=== PATIENT | female | born 1980 | race Caucasian/White ===

== ENCOUNTER 2017-04-14 14:48 | Emergency (ER) | payer OTHER ==
--- NOTE | 2017-04-14 15:31 | ER Document Report ---
ED Medical Screen (RME) - General Chief Complaint: Chest Pain > 30 Stated Complaint: CHEST PAIN, BACK PAIN Time Seen by Provider: 04/14/17 15:28 Notes: Patient is having pains in her chest and left upper back since last night. She says the chest pain is no longer present at this time, but she still feels "tight" in the left upper back. She has thought it might be a panic attack. She has had symptoms in the past similar to these. She has had some shortness of breath, but no other symptoms or complaints. Patient is in the process of smoking during this week. She has had one cigarette today. No recent cough or cold or chest congestion. No fevers. No history of any heart disease. TRAVEL OUTSIDE OF THE [place] IN LAST 30 DAYS: No - Related Data Allergies/Adverse Reactions: codeine Allergy (Verified 04/14/17 14:58) Past Medical History Renal/ Medical History: Denies: Hx Peritoneal Dialysis Physical Exam - Vital signs Vitals: Temp Pulse Resp BP Pulse Ox 97.8 F 79 16 149/85 H 99 04/14/17 14:53 04/14/17 14:53 04/14/17 14:53 04/14/17 14:53 04/14/17 14:53 Course - Vital Signs Vital signs: Temp Pulse Resp BP Pulse Ox 97.8 F 79 16 149/85 H 99 04/14/17 14:53 04/14/17 14:53 04/14/17 14:53 04/14/17 14:53 04/14/17 14:53
[2017-04-14 16:18] LABS: ABSOLUTE BASOPHILS # (AUTO) 0.1 10^3/uL (0.0-0.2); ABSOLUTE EOSINOPHILS # (AUTO) 0.6 10^3/uL (0.0-0.6); ABSOLUTE LYMPHOCYTES (AUTO) 2.5 10^3/uL (0.5-4.7); ABSOLUTE MONOCYTES (AUTO) 0.6 10^3/uL (0.1-1.4); ABSOLUTE NEUT (AUTO) 5.2 10^3/uL (1.7-8.2); BASOPHILS % (AUTO) 0.8 % (0-2); EOSINOPHILS % (AUTO) 6.1 % (0-6); HEMATOCRIT 40.7 % (36.0-47.0); HEMOGLOBIN 13.7 g/dL (12.0-15.5); HGB HCT DIFFERENCE 0.4; MEAN CORPUSCULAR HEMOGLOBIN 27.5 pg (27.0-33.4); MEAN CORPUSCULAR HGB CONC 33.6 g/dL (32.0-36.0); MEAN CORPUSCULAR VOLUME 82 fl (80-97); RED BLOOD COUNT 4.96 10^6/uL (3.72-5.28); RED CELL DISTRIBUTION WIDTH 16.1 % (11.5-14.0); SEGMENTED NEUTROPHILS % (AUTO) 58.1 % (42-78)
[2017-04-14 16:30] LABS: ALANINE AMINOTRANSFERASE 36 U/L (9-52); ALBUMIN 4.1 g/dL (3.5-5.0); ALKALINE PHOSPHATASE 92 U/L (38-126); ANION GAP 12 (5-19); ASPARTATE AMINO TRANSFERASE 17 U/L (14-36); BILIRUBIN,DIRECT 0.3 mg/dL (0.0-0.4); BILIRUBIN,TOTAL 0.3 mg/dL (0.2-1.3); BLOOD UREA NITROGEN 10 mg/dL (7-20); CALCIUM 9.2 mg/dL (8.4-10.2); CARBON DIOXIDE 23 mmol/L (22-30); CHLORIDE 103 mmol/L (98-107); GLUCOSE 92 mg/dL (75-110); POTASSIUM 4.2 mmol/L (3.6-5.0); SODIUM 138.2 mmol/L (137-145); TOTAL PROTEIN 6.8 g/dL (6.3-8.2)
[2017-04-14 16:41] LABS: CREATINE KINASE MB 0.27 ng/mL (<4.55)
--- NOTE | 2017-04-14 16:41 | RADIOLOGY REPORT (SQ) ---
EXAM DESCRIPTION: CHEST PA/LAT COMPLETED DATE/TIME: 04/14/2017 4:33 pm REASON FOR STUDY: Chest pain COMPARISON: None. EXAM PARAMETERS: NUMBER OF VIEWS: two views TECHNIQUE: Digital Frontal and Lateral radiographic views of the chest acquired. RADIATION DOSE: NA LIMITATIONS: none FINDINGS: LUNGS AND PLEURA: No opacities, masses or pneumothorax. No pleural effusion. MEDIASTINUM AND HILAR STRUCTURES: No masses or contour abnormalities. HEART AND VASCULAR STRUCTURES: Heart normal size. No evidence for failure. BONES: No acute findings. HARDWARE: None in the chest. OTHER: No other significant finding. IMPRESSION: NO SIGNIFICANT RADIOGRAPHIC FINDING IN THE CHEST. TECHNICAL DOCUMENTATION: JOB ID: [id number] [facility]- All Rights Reserved
[2017-04-14 16:44] LABS: TROPONIN I < 0.012 ng/mL
[2017-04-14] MEDS ORDERED: ALBUTEROL SULFATE HFA (90 MCG/PUFF) 8 GM MDI (1 MDI/ER DISP) IH ONE (17:18)
--- NOTE | 2017-04-14 17:19 | ER Document Report ---
ED General - General Chief Complaint: Chest Pain > 30 Stated Complaint: CHEST PAIN, BACK PAIN Time Seen by Provider: 04/14/17 15:28 TRAVEL OUTSIDE OF THE [place] IN LAST 30 DAYS: No - HPI Patient complains to provider of: Chest pain back pain Notes: Patient is coming in for chest pain and back pain. Patient states symptoms ongoing for the last few days. Patient states having some increased stress. Patient does smoke however is trying to quit. Patient denies any fevers chills nausea vomiting. Patient denies any recent travel denies any other medical problems. - Related Data Allergies/Adverse Reactions: codeine Allergy (Verified 04/14/17 14:58) Past Medical History - Social History Smoking Status: Unknown if Ever Smoked Family History: Reviewed & Not Pertinent Patient has suicidal ideation: No Patient has homicidal ideation: No Renal/ Medical History: Denies: Hx Peritoneal Dialysis Review of Systems - Review of Systems Constitutional: No symptoms reported EENT: No symptoms reported Cardiovascular: Chest pain Respiratory: Short of breath Gastrointestinal: No symptoms reported Genitourinary: No symptoms reported Female Genitourinary: No symptoms reported Musculoskeletal: No symptoms reported Skin: No symptoms reported Hematologic/Lymphatic: No symptoms reported Neurological/Psychological: No symptoms reported -: Yes All other systems reviewed and negative Physical Exam - Vital signs Vitals: Temp Pulse Resp BP Pulse Ox 97.8 F 79 16 149/85 H 99 04/14/17 14:53 04/14/17 14:53 04/14/17 14:53 04/14/17 14:53 04/14/17 14:53 Interpretation: Normal - General General appearance: Appears well, Alert - HEENT Head: Normocephalic, Atraumatic Eyes: Normal Pupils: PERRL - Respiratory Respiratory status: No respiratory distress Chest status: Nontender Breath sounds: Wheezing Chest palpation: Normal - Cardiovascular Rhythm: Regular Heart sounds: Normal auscultation Murmur: No - Abdominal Inspection: Normal Distension: No distension Bowel sounds: Normal Tenderness: Nontender Organomegaly: No organomegaly - Back Back: Normal, Nontender - Extremities General upper extremity: Normal inspection, Nontender, Normal color, Normal ROM , Normal temperature General lower extremity: Normal inspection, Nontender, Normal color, Normal ROM , Normal temperature, Normal weight bearing. No: Bree's sign - Neurological Neuro grossly intact: Yes Cognition: Normal Orientation: AAOx4 [place] Coma Scale Eye Opening: Spontaneous [place] Coma Scale Verbal: Oriented [place] Coma Scale Motor: Obeys Commands [place] Coma Scale Total: 15 Speech: Normal Motor strength normal: LUE, RUE, LLE, RLE Sensory: Normal - Psychological Associated symptoms: Normal affect, Normal mood - Skin Skin Temperature: Warm Skin Moisture: Dry Skin Color: Normal Course - Re-evaluation Re-evalutation: 04/14/17 22:51 Patient is coming in for evaluation of chest pain back pain. Patient has wheezing bilaterally. Patient does smoke. Possibility of chest wall pain cost chondritis. Also patient has increased stress. Patient will be given a inhaler for her wheezing at home. Patient will also be given Vistaril as she states that this may be her anxiety. No signs or significant history that would point to any cardiac event patient will be discharged home follow-up primary care - Vital Signs Vital signs: Temp Pulse Resp BP Pulse Ox 97.8 F 69 16 133/86 H 98 04/14/17 14:53 04/14/17 17:30 04/14/17 17:30 04/14/17 17:30 04/14/17 17:30 - Laboratory Result Diagrams: 04/14/17 15:55 04/14/17 15:55 Laboratory results interpreted by me: 04/14/17 15:55 RDW 16.1 H Eosinophils % 6.1 H Discharge - Discharge Clinical Impression: Chest pain of unknown etiology Condition: Good Disposition: HOME, SELF-CARE Instructions: Chest Wall Pain ([facility]), Chest Pain of Unclear Cause ([facility]), Anxiety ([facility]) Additional Instructions: Follow-up with your primary care physician. Take medication as prescribed. Your lab work today EKG chest x-ray did not reveal any critical etiology for her symptoms. Your examination does reveal slight wheezing in the chest I would recommend using the inhaler that we use here 2 puffs every 4 hours for the next 2 days and then as needed for shortness of breath. I encourage you to continue to stop smoking and applauded your success There is a possibility that your symptoms may be related to stress or anxiety. We will start you on Vistaril to aid and anxiety. Please take it at night prior to bedtime. Prescriptions: Hydroxyzine Pamoate [Vistaril 25 mg Capsule] 25 mg PO QHS #30 capsule Albuterol Sulfate [Proair HFA] 1 - 2 puff IH Q4 PRN #1 inhaler PRN Reason: Forms: Return to Work
[2017-04-14 17:35] VITALS: BP 133/86
--- NOTE | 2017-04-14 20:04 | EKG REPORT ---
SEVERITY:- NORMAL ECG - SINUS RHYTHM : Confirmed by: Pasquale Barber MD 14-Apr-2017 20:04:05
== END 2017-04-14 17:30 | disposition home or self-care (01) ==
LOC: ER 14:48
DX: R07.9 Chest pain, unspecified (principal); M54.9 Dorsalgia, unspecified
CPT/HCPCS: 36415; 71020; 80053; 82553; 84484; 85025; 93005; 93010; 99285